=== PATIENT | female | born 1965 | race Hispanic/Latino ===

== ENCOUNTER 2018-02-28 11:16 | Emergency (ER) | payer OTHER ==
[2018-02-28 12:04] VITALS: BP 110/59
== END 2018-02-28 15:20 | disposition left against medical advice (07) ==
LOC: ED 11:16
DX: M25.539 Pain in unspecified wrist (principal); Z88.0 Allergy status to penicillin; Z95.1 Presence of aortocoronary bypass graft; F17.200 Nicotine dependence, unspecified, uncomplicated; V49.49XA Driver injured in collision with other motor vehicles in traffic accident, initial encounter; W22.11XA Striking against or struck by driver side automobile airbag, initial encounter; Y93.89 Activity, other specified; Y99.8 Other external cause status; Y92.488 Other paved roadways as the place of occurrence of the external cause; Z53.21 Procedure and treatment not carried out due to patient leaving prior to being seen by health care provider